=== PATIENT | male | born 1965 | race Caucasian/White ===

== ENCOUNTER 2018-09-06 11:51 | Emergency (ER) | payer OTHER ==
[2018-09-06 12:13] VITALS: BP 107/68; PULSE 81; TEMP 98.2; BMI 33.0
[2018-09-06] MEDS ORDERED: ACETAMINOPHEN 500 MG TABLET (FP) PO ONE (13:02)
--- NOTE | 2018-09-06 13:04 | PDOC ---
History of Present Illness - General Chief Complaint: Pain, Acute Stated Complaint: L ARM PAIN Time Seen by Provider: 09/06/18 12:59 - History of Present Illness Initial Comments: 09/06/18 13:02 53 -year-old male with a past medical history significant for diabetes and hypertension presents for evaluation of atraumatic onset of left arm pain times one month no systemic symptoms. Past History - Past Medical History Allergies/Adverse Reactions: Allergies Allergy/AdvReac Type Severity Reaction Status Date / Time No Known Allergies Allergy Verified 09/06/18 12:10 COPD: No Diabetes: Yes HTN: Yes - Suicide/Smoking/Psychosocial Hx Smoking History: Never smoked Hx Alcohol Use: No Drug/Substance Use Hx: No Review of Systems - Review of Systems Musculoskeletal: Yes: Joint Pain *Physical Exam - Vital Signs Last Vital Signs Temp Pulse Resp BP Pulse Ox 98.2 F 81 18 107/68 99 09/06/18 12:11 09/06/18 12:11 09/06/18 12:11 09/06/18 12:11 09/06/18 12:11 - Physical Exam Comments: 09/06/18 13:02 Left arm skin color and temperature are normal. Range of motion is full in the shoulder elbow and wrist. There is no tenderness about the medial lateral epicondyle left elbow moderate tenderness about the tricep tendon. 5 out of 5 strength. No evidence of instability or gross sensorimotor deficits. He is neurovascularly intact. Moderate Sedation - Procedure Monitoring Vital Signs: Procedure Monitoring Vital Signs Temperature 98.2 F 09/06/18 12:11 Pulse Rate 81 09/06/18 12:11 Respiratory Rate 18 09/06/18 12:11 Blood Pressure 107/68 09/06/18 12:11 O2 Sat by Pulse Oximetry (%) 99 09/06/18 12:11 Medical Decision Making - Medical Decision Making 09/06/18 13:03 Left elbow triceps tendinitis. Follow-up with orthopedics. Tylenol for pain patient is on ALANA inhibitor for hypertension no NSAIDs *DC/Admit/Observation/Transfer Diagnosis at time of Disposition: Tendinitis of left triceps - Discharge Dispostion Disposition: HOME Condition at time of disposition: Stable Decision to Admit order: No - Referrals Referrals: Herbert Bob MD [Primary Care Provider] - Venancio Álvarez MD [Staff Physician] - - Patient Instructions Printed Discharge Instructions: DI for Tendinitis Additional Instructions: Tylenol as directed for pain. Follow-up with orthopedic surgery in 1-2 days for further evaluation and treatment options. Return to the ER should symptoms worsen or go unresolved. - Post Discharge Activity
[2018-09-06] MEDS ORDERED: ACETAMINOPHEN 500 MG TABLET (FP) ONE (13:07)
== END 2018-09-06 13:10 | disposition home or self-care (01) ==
LOC: JERFT 11:51
DX: M77.8 Other enthesopathies, not elsewhere classified (principal); I10 Essential (primary) hypertension; E11.9 Type 2 diabetes mellitus without complications
CPT/HCPCS: 99281-25